=== PATIENT | male | born 1990 | race Caucasian/White ===

== ENCOUNTER 2020-04-03 03:39 | Emergency (ER) | payer SELFPAY ==
[~2020-04-03] VITALS: Ht 185.4 cm; Wt 95.3 kg
== END 2020-04-03 04:52 | disposition home or self-care (01) ==
LOC: ED 03:39
DX: S00.83XA Contusion of other part of head, initial encounter (principal); F10.10 Alcohol abuse, uncomplicated; Z88.0 Allergy status to penicillin; W19.XXXA Unspecified fall, initial encounter; Y93.89 Activity, other specified; Y92.89 Other specified places as the place of occurrence of the external cause; Y99.8 Other external cause status